=== PATIENT | female | born 1975 | race Caucasian/White ===

== ENCOUNTER → 2021-12-02 12:24 | Outpatient (CLI) | payer OTHER, SELFPAY ==
[2021-12-02 13:18] LABS: Hematocrit 44.7 % (37.0-47.0); Hemoglobin 14.7 g/dL (12.2-16.2); Mean Corpuscular HGB Conc 32.8 g/dL (31.8-35.4); Mean Corpuscular Hemoglobin 31.9 pg (27.0-31.2); Mean Corpuscular Volume 97.3 fl (81-99); Platelet Count 340 K/mm3 (142-424); Red Cell Distribution Width 12.8 % (11.5-17.5); White Blood Count 6.1 K/mm3 (4.8-10.8)
[2021-12-02 14:17] LABS: Alanine Aminotransferase 14 U/L (12-78); Albumin Level 4.2 g/dl (3.5-5.0); Albumin/Globulin Ratio 1.8 (1.1-1.8); Alkaline Phosphatase 54 U/L (38-126); Anion Gap 10.4 mEq/L (5-15); Aspartate Amino Transferase 19 U/L (14-36); Bilirubin,Total 0.6 mg/dl (0.2-1.3); Blood Urea Nitrogen 12 mg/dl (7-17); Calcium 8.8 mg/dl (8.4-10.2); Carbon Dioxide 27 mmol/L (22.0-30.0); Chloride 102 mmol/L (98-107); Chol/HDL Ratio 4.2 (1-3.5); Cholesterol 219 mg/dl (140-200); Estimated Glomerular Filt Rate 89 ml/min (>60); GFR (African American) 108 ML/MIN (>60); Globulin 2.4 g/dL (1.3-3.2); Glucose 78 mg/dl (74-100); HDL Cholesterol 52 mg/dl (40-60); Potassium 4.4 mmoL/L (3.5-5.1); Sodium 135 mmol/L (136-145); Total Protein,Serum 6.6 g/dl (6.3-8.2); Triglycerides 102 mg/dl (30-150); VLDL Cholesterol 20 mg/dL (0-40)
[2021-12-02 14:28] LABS: Direct LDL Cholesterol 128.16 mg/dL (100-129)
[2021-12-02 14:34] LABS: 25-OH Vitamin D, Total 37.9 ng/mL (30-100); T4 (Thyroxine) 6.1 ug/dl (5.53-11.0)
[2021-12-02 14:35] LABS: Free T4 (Free Thyroxine) 0.77 ng/dl (0.78-2.19)
[2021-12-02 14:48] LABS: Thyroid Stimulating Hormone 0.59 uIU/mL (0.465-4.68)
[2021-12-04 09:23] LABS: Triiodothyronine (T3) Free 4.5 pg/mL (2.0-4.4)
[2021-12-04 22:26] LABS: Thyroglobulin Level <1.0 IU/mL (0.0-0.9)
[2021-12-09 08:47] LABS: Thyroid Peroxidase Antibodies 49 IU/mL (0-34)
== END ==
PROVIDERS: Visit Provider Family Medicine
DX: Z00.00 Encounter for general adult medical examination without abnormal findings (principal); E03.9 Hypothyroidism, unspecified; E06.3 Autoimmune thyroiditis; E55.9 Vitamin D deficiency, unspecified
CPT/HCPCS: 36415; 80053; 80061; 82306; 84436; 84439; 84443; 84481; 85014; 85018; 85048; 85049; 86376; 86800

== ENCOUNTER → 2022-04-30 12:54 | Outpatient (CLI) | payer OTHER, SELFPAY ==
[2022-04-30 14:34] LABS: Free T4 (Free Thyroxine) 1.43 ng/dl (0.78-2.19)
[2022-04-30 14:35] LABS: 25-OH Vitamin D, Total 79.3 ng/mL (30-100)
[2022-04-30 14:37] LABS: T4 (Thyroxine) 11.8 ug/dl (5.53-11.0)
[2022-04-30 14:51] LABS: Thyroid Stimulating Hormone < 0.02 uIU/mL (0.465-4.68)
[2022-05-02 10:08] LABS: Thyroid Peroxidase Antibodies 31 IU/mL (0-34); Triiodothyronine (T3) Free 4.1 pg/mL (2.0-4.4)
== END ==
PROVIDERS: PCP Family Medicine; Visit Provider Family Medicine
DX: E03.9 Hypothyroidism, unspecified (principal); E06.3 Autoimmune thyroiditis; E55.9 Vitamin D deficiency, unspecified
CPT/HCPCS: 36415; 82306; 84436; 84439; 84443; 84481; 86376

== ENCOUNTER → 2023-09-22 09:05 | Outpatient (CLI) | payer BC, OTHER, SELFPAY ==
[2023-09-22 10:33] LABS: Free T4 (Free Thyroxine) 1.39 ng/dl (0.78-2.19)
[2023-09-22 10:46] LABS: Thyroid Stimulating Hormone < 0.02 uIU/mL (0.465-4.68)
[2023-09-23 09:48] LABS: FSH 4.9 mIU/mL (.); LH 13.4 mIU/mL (.); Progesterone 12.1 ng/mL (.); Triiodothyronine (T3) Free 3.2 pg/mL (2.0-4.4)
[2023-09-30 06:09] LABS: Pregnenolone, MS 80 ng/dL (.)
[2023-10-01 20:18] LABS: Free Testosterone (Direct) 1.7 pg/mL (0.0-4.2); Testosterone, Total, LC/MS 51.7 ng/dL (.)
== END ==
PROVIDERS: PCP Family Medicine; Visit Provider Family Medicine
DX: E03.9 Hypothyroidism, unspecified (principal); E89.40 Asymptomatic postprocedural ovarian failure
CPT/HCPCS: 36415; 82626; 82670; 83001; 83002; 84140; 84144; 84439; 84443; 84481

== ENCOUNTER 2023-09-23 09:02 | Emergency (ER) | payer BC, OTHER, SELFPAY ==
[2023-09-23 09:15] VITALS: BP 129/78; PULSE 78; RESP 20; TEMP 36.6; O2SAT 95; BMI 25.0
--- NOTE | 2023-09-23 09:20 | ED_ITS ---
Discharge Plan Disposition Patient Disposition: Home, Self-Care Condition: Good Prescriptions Prescriptions: New benzonatate [benzonatate] 100 mg capsule 100 mg PO TIDP PRN (Reason: Cough) Qty: 30 0RF oseltamivir [Tamiflu] 75 mg capsule 75 mg PO BID Qty: 10 0RF ibuprofen [ibuprofen] 600 mg tablet 600 mg PO Q6HP PRN (Reason: Mild Pain) Qty: 30 0RF No Action liothyronine 5 mcg tablet 5 mcg PO DAILY levothyroxine [Synthroid] 112 mcg tablet 112 mcg PO DAILY escitalopram oxalate 10 mg tablet 10 mg PO DAILY Referrals Follow up/Referrals: Adamaris Glass [Primary Care Provider] - See instructions Activity Restrictions/Add. Instructions Additional Instructions/Restrictions: Drink plenty of fluids. Take tylenol or ibuprofen for pain or fever. Take the medications as directed. Follow up with your regular doctor. GO TO THE ER FOR ANY WORSENING SYMPTOMS Clinical Impressions Clinical Impression: Acute viral syndrome Instructions Patient Instructions: DI for Influenza -- Adult, Oseltamivir Discharge ED Provider: Shaun Sanchez [facility] General Stated complaint: fever,body aches, runny nose Time Seen by Provider: 09/23/23 09:20 History of Present Illness Provider Complaint: She states that for the past 2 days she has had fever, chills, body aches, dry cough, malaise, and scratchy throat. She has been exposed to influenza. She denies any shortness of breath. Related Data Home Medications Medication Instructions Recorded Confirmed escitalopram oxalate 10 mg tablet 10 mg PO DAILY 09/23/23 09/23/23 levothyroxine 112 mcg tablet 112 mcg PO DAILY 09/23/23 09/23/23 (Synthroid) liothyronine 5 mcg tablet 5 mcg PO DAILY 09/23/23 09/23/23 Previous Rx's Medication Instructions Recorded benzonatate 100 mg capsule 100 mg PO TIDP PRN Cough #30 caps 09/23/23 ibuprofen 600 mg tablet 600 mg PO Q6HP PRN Mild Pain #30 09/23/23 tabs oseltamivir 75 mg capsule (Tamiflu) 75 mg PO BID #10 caps 09/23/23 Allergies Allergy/AdvReac Type Severity Reaction Status Date / Time No Known Allergies Allergy Verified 09/23/23 09:27 [facility] Disclaimer: The information contained in this section may have been updated after the patient was seen, as this information can be updated by other users. Medical History (Updated 09/23/23 @ 09:45 by Shaun Sanchez APRN) Anxiety Depression Thyroid disease Urinary tract infection Surgical History (Updated 09/23/23 @ 09:27 by Rafaela Rodríguez RN) History of hernia repair History of hysterectomy History of tonsillectomy Social History Smoking Status: Never smoker alcohol intake: never current occupational status: employed Travel in the last 8 weeks: None ROS Obtained: Yes All systems reviewed & no additional complaints except as documented Constitutional Constitutional: Reports as per HPI, Reports body ache, Reports chills and Report s fever(s) Eyes Eyes: Denies eye discharge ENT Ears, Nose, Mouth, and Throat: Reports as per HPI Cardiovascular Cardiovascular: Denies chest pain Respiratory Respiratory: Denies chest congestion and Reports cough Gastrointestinal Gastrointestingal: Reports nausea; Denies abdominal pain, constipation, cramping, diarrhea or vomiting Musculoskeletal Musculoskeletal: Denies arthralgias Integumentary/Breasts Skin/Breast: Denies rash Neurologic Neurologic: Denies paresthesias Physical Exam General General appearance: alert and in no apparent distress Head Head exam: atraumatic, normocephalic and normal inspection Eye Eye exam: Present normal appearance, PERRL and EOMI ENT ENT exam: Present normal exam, normal oropharynx, mucous membranes moist, TM's normal bilaterally and normal external ear exam Neck Neck exam: Present normal inspection, full ROM and trachea midline; Absent meningismus or lymphadenopathy Chest Chest inspection: Present normal inspection and symmetric chest wall rise; Absent tenderness Respiratory Respiratory exam: Present normal lung sounds bilaterally; Absent respiratory distress Cardiovascular Cardiovascular exam: Present regular rate and normal rhythm; Absent JVD Abdominal Exam Abdominal exam: Present soft and normal bowel sounds; Absent distention, tenderness or guarding Extremities Exam Extremities exam: Present normal inspection, full ROM and normal capillary refill; Absent calf tenderness Back Exam Back exam: Present normal inspection; Absent tenderness Neurological Exam Neurological exam: Present alert and oriented X3 Psychiatric Psychiatric exam: Present normal affect and normal mood Skin Skin exam: Present warm, dry, intact and normal color Lymphatic Lymphatic Findings: no adenopathy Medical Decision Making Medical Records Medical records reviewed: No I reviewed the patient's medical records. Hussein Inquiry Pt receiving controlled substance: No Lab Data Lab results reviewed: Yes I reviewed the patient's lab results.
[2023-09-23 09:25] LABS: UTC Influenza A Antigen Negative (Negative); UTC Influenza B Antigen Negative (Negative)
[2023-09-23 09:30] VITALS: BP 129/78; PULSE 78; RESP 20; TEMP 36.6; O2SAT 95
== END 2023-09-23 09:50 | disposition home or self-care (01) ==
PROVIDERS: Emergency Provider Nurse Practitioner Family; PCP Family Medicine
DX: U07.1 COVID-19 (principal); R50.9 Fever, unspecified; R05.9 Cough, unspecified; R09.81 Nasal congestion; R53.81 Other malaise; M79.18 Myalgia, other site; E03.9 Hypothyroidism, unspecified; Z20.828 Contact with and (suspected) exposure to other viral communicable diseases
CPT/HCPCS: 87635; 87804; 99204; 99212; G0463

== ENCOUNTER 2024-02-10 11:58 | Outpatient (CLI) | payer BC, OTHER, SELFPAY ==
[2024-02-10 12:44] LABS: Basophils # 0.1 K/mm3 (0-0.2); Basophils % 0.6 % (0.1-2.0); Eosinophils # 0.2 K/mm3 (0.0-0.4); Eosinophils % 2.1 % (0.1-12.0); Hematocrit 45.8 % (37.0-47.0); Hemoglobin 15.4 g/dL (12.2-16.2); Lymphocytes # 2.1 K/mm3 (0.7-4.5); Lymphocytes % 28.7 % (10-50); Mean Corpuscular HGB Conc 33.6 g/dL (31.8-35.4); Mean Corpuscular Hemoglobin 32.6 pg (27.0-31.2); Mean Corpuscular Volume 96.9 fl (81-99); Mean Platelet Volume 6.8 fl (7.4-10.4); Monocytes # 0.2 K/mm3 (0.1-1.0); Monocytes % 3.3 % (1.7-9.3); Neutrophils # 4.8 K/mm3 (1.8-7.8); Neutrophils % 65.2 % (37.0-80.0); Platelet Count 303 K/mm3 (142-424); Red Blood Count 4.72 M/mm3 (4.20-5.40); Red Cell Distribution Width 13.1 % (11.5-17.5); White Blood Count 7.3 K/mm3 (4.8-10.8)
[2024-02-10 13:57] LABS: Free T4 (Free Thyroxine) 1.15 ng/dl (0.78-2.19)
[2024-02-10 14:25] LABS: Vitamin B12 370 pg/mL (239-931)
[2024-02-10 14:48] LABS: Thyroid Stimulating Hormone 0.03 uIU/mL (0.465-4.68)
[2024-02-10 14:52] LABS: Ferritin 86.2 ng/ml (11.1-264)
[2024-02-11 14:19] LABS: FSH 10.5 mIU/mL (.); Insulin Level Total 4.9 uIU/mL (2.6-24.9); LH 17.8 mIU/mL (.); Progesterone 6.8 ng/mL (.); Triiodothyronine (T3) Free 3.5 pg/mL (2.0-4.4)
[2024-02-14 00:08] LABS: Zinc 85 ug/dL (44-115)
[2024-02-16 14:24] LABS: % Free Testosterone 1.67 % (0.50-2.80); Testosterone 47 ng/dL (4-50); Testosterone, Free 0.78 ng/dL (0.10-0.85)
[2024-02-18 07:32] LABS: Free Testosterone (Direct) 2.2 pg/mL (0.0-4.2); Testosterone, Total, LC/MS 60.9 ng/dL (.)
[2024-02-19 19:31] LABS: Testosterone, Total, LC/MS 46 ng/dL (.)
[2024-02-20 12:16] LABS: Testosterone,Total 60.9
[2024-02-20 12:17] LABS: Miscellaneous Test SCANNED IMAGE
[2024-02-26 02:44] LABS: Pregnenolone, MS 34 ng/dL (.)
== END 2024-02-10 23:59 | disposition home or self-care (01) ==
LOC: LAB 11:59
PROVIDERS: PCP Family Medicine; Visit Provider Family Medicine
DX: M75.82 Other shoulder lesions, left shoulder (principal); E03.9 Hypothyroidism, unspecified; N95.1 Menopausal and female climacteric states; R53.83 Other fatigue; E55.9 Vitamin D deficiency, unspecified; E60 Dietary zinc deficiency
CPT/HCPCS: 36415; 82306; 82607; 82626; 82728; 83001; 83002; 83525; 84140; 84144; 84402; 84403; 84439; 84443; 84481; 84630; 85025

== ENCOUNTER 2025-07-24 16:17 | Outpatient (CLI) | payer BC, OTHER, SELFPAY ==
--- OUTSIDE RECORDS SUMMARY | 2025-06-24 13:27 | XMS_ITS | Encounter Summary ---
Author Organization [facility] ([place], [place], [place], [place]) Address [address] [place] [address] Care Team Providers Care Fur Stretcher Name Role Phone Adamaris Glass DO Primary Care Provider [phone] Reason for Visit * Mammography (Routine) - Closed Specialty Diagnoses / Procedures Referred By Contac t Referred To Contact Radiology Diagnoses Visit for screening mammogram Procedures MM digital mammo screen with taqueria bilateral Adamaris Glass DO [address] [place] [address] Phone: tel: fax: [facility] [address] [place] [address] Phone: tel: fax: Referral ID Status Reason Start Date Expiration Date Visits Re quested Visits Authorized [id number] Closed 06/24/2025 06/24/2026 1 1 Encounter Details Date Type Department Care Team (Latest Contact Info) Description 06/24/2025 1:27 PM EDT - 06/24/2025 11:59 PM EDT Hospital Encounter [facility] [address] [place] [phone] Adamaris Glass DO [address] [place] [address] Discharge Disposition: Home or Self [...] Date Larry rded Speak language other than Georgian at home Not on file 10/05/2023 Want [...] Description 10/16/2025 1:00 PM EST Office Visit [facility] Primary Care [address] [place] [address] Adamaris Glass DO [address] [place] [address] 06/26/2026 2:45 PM EDT Appointment [facility] [address] [place] [address] documented as of this encounter [...] the next mammogram. At our facility, a [place] marker is positioned over a visible skin [...] No suspicious change identified. Adamaris Glass DO [facility] [place] MAMMOGRAPHY ORDERABLES Fin al Result documented in this encounter Visit Diagnoses Not on filedocumented in this encounter Care Teams Fur Stretcher Relationship Specialty Start Date End Date Adamaris Glass DO PCP - General Family Medicine 11/18/22 documented as of this encounter
--- OUTSIDE RECORDS SUMMARY | 2025-07-18 14:15 | XMS_ITS | Encounter Summary ---
Author Organization [employer] ([place], [place], [place], [place]) Address [address] [place] [address] Care Team Providers Care Store Stock Help Name Role Phone Adamaris Glass DO Primary Care Provider [phone] Reason for Visit * Reason Comments Infection Signs dx'd with co ntagious oral bacteria from an abscess Encounter Details Date Type Department Care Team (Latest Contact Info) Description 07/18/2025 2:15 PM EDT Video - Telemedicine [facility] Primary Care [address] [place] [address] Adamaris Glass DO [address] [place] [address] Tick bite, unspecified site, initial [...] Date Larry rded Speak language other than Uzbek at home Not on file 10/05/2023 Want [...] 4:22 This note was partially generated using [employer] Dictation System, and there may be some [...] Description 10/16/2025 1:00 PM EST Office Visit [facility] Primary Care [address] [place] [address] Adamaris Glass DO [address] [place] [address] 06/26/2026 2:45 PM EDT Appointment [facility] [address] [place] [address] Scheduled Orders Name Type Priority [...] deficiency documented in this encounter Care Teams Store Stock Help Relationship Specialty Start Date End Date Adamaris Glass DO PCP - General Family Medicine 11/18/22 documented as of this encounter
--- OUTSIDE RECORDS SUMMARY | 2025-07-24 16:20 | XMS_ITS | Encounter Summary ---
Author Organization [employer] ([place], [place], [place], [place]) Address [address] [place] [address] Care Team Providers Care Truck Dispatcher Name Role Phone Adamaris Glass DO Primary Care Provider [phone] Reason for Referral * Mammography (Routine) - Authorized Specialty Diagnoses / Procedures Referred By Contac t Referred To Contact Radiology Diagnoses Visit for screening mammogram Procedures MM digital mammo screen with sury bilateral Adamaris Glass DO [address] [place] [address] Phone: tel: fax: [facility] [address] [facility] [address] [place] [address] Phone: tel: fax: Referral ID Status Reason Start Date Expiration Date V isits Requested Visits Authorized [id number] Authorized 06/26/2026 06/26/2027 1 1 Encounter Details Date Type Department Care Team (Late st Contact Info) Description 06/24/2025 Outside Orders [facility] [address] [place] [address] Adamaris Glass DO [address] [place] [address] Visit for screening mammogram (Primary Dx) Social History Tobacco Use Types Packs/Day Years [...] Date Larry rded Speak language other than Zimbabwean at home Not on file 10/05/2023 Want [...] on file documented as of this encounter Plan of Treatment Upcoming Encounters Date Type Department Care Team (Late st Contact Info) Description 10/16/2025 1:00 PM EST Office Visit [facility] Primary Care [address] [place] [id number] Adamaris Glass, [address] [place] [address] 06/26/2026 2:45 PM EDT Appointment [address] [place] [address] Scheduled Orders Name Type Priority Associated Diagnoses Orde r Schedule MM digital mammo screen with sury bilateral Imaging Routine Visit for screening mammogram Expected: 06/26/2026, Expires: 06/26/2027 documented as of this encounter Visit Diagnoses Diagnosis Visit for screening mammogram- Primary documented in this encounter Care Teams Truck Dispatcher Relationship Specialty Start Date End Date Adamaris Glass DO PCP - General Family Medicine 11/18/22 documented as of this encounter
--- OUTSIDE RECORDS SUMMARY | 2025-07-24 16:20 | XMS_ITS | Encounter Summary ---
Author Organization [employer] ([place], [place], [place], [place]) Address [address] [place] [address] Care Team Providers Care Clothing Designer Name Role Phone Adamaris Glass DO Primary Care Provider [phone] Reason for Visit * Reason Comments Medication Refill Encounter Details Date Type Department Care Team (Late st Contact Info) Description 01/17/2024 Refill [facility] Primary Care [address] [place] [address] Adamaris Glass DO [address] [facility] [address] [place] [address] Depressive disorder Social History Tobacco Use Types Packs/Day Years [...] Date Larry rded Speak language other than Sri Lankan at home Not on file 10/05/2023 Want [...] Description 10/16/2025 1:00 PM EST Office Visit [facility] Primary Care [address] [place] [address] Adamaris Glass DO [address] [place], [place] [id number] 06/26/2026 2:45 PM EDT Appointment [facility] [address] [place] [address] documented as of this encounter Visit Diagnoses Diagnosis Depressive disorder Depressive disorder, not elsewhere classified documented in this encounter Care Teams Clothing Designer Relationship Specialty Start Date End Date Adamaris Glass DO PCP - General Family Medicine 11/18/22 documented as of this encounter
--- OUTSIDE RECORDS SUMMARY | 2025-07-24 16:20 | XMS_ITS | Clinical Summary ---
Author Organization [facility] Address [address] [place] [id number] Care Team Providers Care Car Audio Installer Name Role Phone Unavailable Primary Care Provider Unavailabl e Social History Tobacco Use Types Packs/Day Years Used Date Smoking Tobacco: Never Assessed Abuse Screen Answer Date Recorded Unsafe at Home or Work/School Not on file Feels Threatened by Someone? Not on file 05/2023 Does Anyone Keep You from Co ntacting Others or Doint Things Outside the Home? Not on file 07/04/2023 Physical Sign of Abuse Present Not on file 1 Housing Stability Answer Date Recorded Current Living Arrangements Not on file 05/2023 Potentially Unsafe Housing Conditions Not on sarahi e 07/04/2023 Family and Community Support Answer Xu e Recorded Help with Day-to-Day Activities Not on file 07/04/2023 Lonely or Isolated Not on file 07/04/2023 Employment Answer Date Recorded Do you want help finding or keeping work or a immanuel b? Not on file 07/04/2023 Disabilities Answer Date Recorded Concentrating, Remembering, or Making Decisions Difficulty Not on file 07/04/2023 Doing Errands Independently Difficulty Not on fi le 07/04/2023 Education Answer Date Recorded Help with school or training? Not on file Preferred Language Not on file 07/04/2023 Comments Unknown Sex and Gender Information Value Date Recorded Sex Assigned at Not on file Legal Sex Female 11:22 AM EDT Gender Identity Not on file Sexual Orientation Not on file Plan of Treatment Health Maintenance Due Date Last Done Comments ANNUAL PHYSICAL 1973 Annual Gynecologic Pelvic and Breast Exam 1973 HEPATITIS C SCREENING 1973 TDAP/TD VACCINES (1 - Tdap) 01/19/1992 MAMMOGRAM 2013 COLOGUARD 2018 COLON CANCER SCREENING 5 YEAR SIGMOIDOSCOPY 2018 COLONOSCOPY 2018 [address]AL CANCER SCREENING 2018 CT COLONOGRAPHY 2018 FECAL OCCULT BLOOD TEST 2018 FIT Testing (1 year) 2018 Pneumococcal Vaccine 50+ (1 of 1 - PCV) 2023 ZOSTER VACCINE (1 of 2) 2023 INFLUENZA VACCINE 04/26/2025
--- OUTSIDE RECORDS SUMMARY | 2025-07-24 16:20 | XMS_ITS | Encounter Summary ---
Author Organization [employer] ([place], [place], [place], [place]) Address [address] [place] [address] Care Team Providers Care Glass Bulb Machine Adjuster Name Role Phone Adamaris Glass DO Primary Care Provider [phone] Reason for Visit * Reason Comments Medication Refill Encounter Details Date Type Department Care Team (Late st Contact Info) Description 10/29/2022 Refill [facility] Primary Care [address] [place] [address] Adamaris Glass DO [address] [place] [address] Hypothyroidism, unspecified type (Primary Dx) Social History Tobacco Use Types Packs/Day Years Used Date Smoking Tobacco: Never Assessed Comments Unknown Sex and Gender Information Value Date Recorded Sex Assigned at Not on file Legal Sex Female 3:57 PM CDT Gender Identity Not on file Sexual Orientation Not on file documented as of this encounter Plan of Treatment Upcoming Encounters Date Type Department Care Team (Late st Contact Info) Description 10/16/2025 1:00 PM EST Office Visit [facility] Primary Care [address] [place] [address] Adamaris Glass DO [address] [place] [address] 06/26/2026 2:45 PM EDT Appointment [address] [place] [address] documented as of this encounter Visit Diagnoses Diagnosis Hypothyroidism, unspecified type- Primary documented in this encounter Care Teams Glass Bulb Machine Adjuster Relationship Specialty Start Date End Date Adamaris Glass DO PCP - General Family Medicine 11/18/22 documented as of this encounter
--- OUTSIDE RECORDS SUMMARY | 2025-07-24 16:20 | XMS_ITS | Encounter Summary ---
Author Organization [employer] ([place], [place], [place], [place]) Address [address] [place] [address] Care Team Providers Care Vocational Instructor Name Role Phone Adamaris Glass DO Primary Care Provider [phone] Reason for Visit * Reason Comments Medication Refill Encounter Details Date Type Department Care Team (Late st Contact Info) Description 07/16/2023 Refill [facility] Primary Care [address] [facility] [address] [place] [address] Adamaris Glass DO [address] [place] [address] Social History Tobacco Use Types Packs/Day Years Used Date Smoking Tobacco: Some Days Cigarettes 0.3 15 Smokeless Tobacco: Never Alcohol Use Standard Drinks/Week Comments Yes 0 (1 standard drink = 0.6 oz pur e alcohol) occasional Comments No Sex and Gender Information Value Date Recorded Sex Assigned at Not on file Legal Sex Female 3:57 PM CDT Gender Identity Not on file Sexual Orientation Not on file documented as of this encounter Plan of Treatment Upcoming Encounters Date Type Department Care Team (Late st Contact Info) Description 10/16/2025 1:00 PM EST Office Visit [facility] Primary Care [address] [place] [address] Adamaris Glass DO [address] [place] [address] 06/26/2026 2:45 PM EDT Appointment [address] [place] [address] documented as of this encounter Visit Diagnoses Not on filedocumented in this encounter Care Teams Vocational Instructor Relationship Specialty Start Date End Date Adamaris Glass DO PCP - General Family Medicine 11/18/22 documented as of this encounter
--- OUTSIDE RECORDS SUMMARY | 2025-07-24 16:20 | XMS_ITS | Referral Summary ---
Author Organization [employer] ([place], [place], [place], [place]) Address [address] [place] [address] Care Team Providers Care Search Analyst Name Role Phone Adamaris Glass DO Primary Care Provider [phone] Encounters Date Type Department Care Team Description 07/18/2025 2:15 PM EDT Video - Telemedicine [facility] Primary Care [address] [place] [address] Adamaris Glass DO Tick bite, unspecified site, initial encounter (Primary Dx); Medium-risk exposure to infectious patient; Pain in other joint; Screening for cardiovascular condition; Vitamin D deficiency 07/18/2025 Telephone [facility] Primary Care [address] [place] [address] Adamaris Glass DO Appointment 06/24/2025 Outside Orders [facility] [address] [facility] [address] [place] [address] Adamaris Glass DO Visit for screening mammogram (Primary Dx) 06/24/2025 Travel 06/24/2025 1:27 PM EDT - 06/24/2025 11:59 PM EDT Hospital Encounter [facility] [address] [facility] [address] [place] [address] Adamaris Glass DO Discharge Disposition: Home or Self Care 05/21/2025 Refill [facility] Primary Care [address] [facility] [address] [place] [address] Adamaris Glass DO Hypothyroidism, unspecified type from Last 3 Months Allergies Active Allergy Reactions Criticality Noted Date Comments Penicillin 11/18/2022 Medications cholecalciferol , vitamin D3, (VITAMIN D3 ORAL) Take by mouth. Activ e loratadine (CLARITIN) 10 mg tablet Take 1 tablet (10 mg total) by mouth daily. Active Lactobac no.41/Bifidobac t no.7 (PROBIOTIC-10 ORAL) Take by mouth. Activ e docosahexaenoic acid/epa (FISH OIL ORAL) Take by mouth. Activ e ibuprofen (ADVIL,MOTRIN) 600 MG tablet Take 1 tablet (600 mg total) by mouth every 6 (six) hours as needed. 3 Active cream base no.101, bulk, CreaIndications :Perimenopause Progesterone 20mg/0.5ml TD cream apply 0.5ml TD qhs. 2 4 Active fluconazole (DIFLUCAN) 150 MG tablet Take one tablet now and repeat in 3 days. 2 tablet 4 Active Synthroid 100 mcg tabletIndicatio ns:Hypothyroidi sm, unspecified type Take 1 tablet (100 mcg total) by mouth Daily (0600). 90 tablet 1 4 Active Missing or Non-Formulary Medication 5-HTP. 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 Hypothyroidism 09/08/2021 Vitamin D deficiency 09/08/2021 Depressive disorder 01/05/2021 Perimenopause 01/05/2021 Zinc deficiency 01/05/2021 Social History Tobacco Use Types Packs/Day Years Used Date Smoking Tobacco: Some Days Cigarettes 0.3 15 Smokeless Tobacco: Never Tobacco Cessation:Ready to Q uit: Not Asked; Counseling Given: Not Answered Alcohol Use Standard Drinks/Week Comments Yes 0 [...] Date Larry rded Speak language other than Malaysian at home Not on file 10/05/2023 Want [...] on file Sexual Orientation Not on file Last Filed Vital Signs Vital Sign Reading Time Taken Comments Blood Pressure 124/72 07/18/2025 11:06 AM EDT Pulse 66 11/09/2023 10:18 AM EST Temperature 36.3 C (97.3 F) 06/16/2023 9:02 AM EDT Respiratory Rate 16 02/25/2023 11:20 AM EDT Oxygen Saturation 97% 11/09/2023 10:18 AM EST Inhaled Oxygen Concentration - - Weight 71.7 kg (158 lb) 07/18/2025 11:06 AM EDT Height 167.6 cm (5' 6 ) 07/18/2025 11:06 AM EDT Body Mass Index 25.5 07/18/2025 11:06 AM EDT Plan of Treatment Upcoming Encounters Date Type Department Care Team (Late st Contact Info) Description 10/16/2025 1:00 PM EST Office Visit [facility] Primary Care [address] [place] [address] Nithya GlassjoseDO [address] [place] [address] 06/26/2026 2:45 PM EDT Appointment [facility] Breast Care [address] [place] [address] Procedures Procedure Name Priority Date/Time Associated Diagnosis Comments MM DIGITAL MAMMO SCREEN WITH TAQUERIA BILATERAL Routine 06/24/2025 1:49 PM EDT Visit for screening mammogram LIPID PANEL WITH LDL/HDL RATIO ([facility]) Routine 12/23/2022 11:13 AM EDT Encounter for general adult medical examination without abnormal findings LIQUID-BASED PAP SMEAR, SCREENING Routine 12/23/2022 12:00 AM EDT from Last 3 Months or Most Recently Relevant to Health Maintenance Results * MM digital mammo screen with [...] the next mammogram. At our facility, a [place] marker is positioned over a visible skin [...] DO IMG MAMMOGRAPHY ORDERABLES Fin al Result * (ABNORMAL) Lipid Panel With LDL/HDL Ratio (12/23/2022 11:13 AM EDT) Pathologist [facility] Cholesterol, Total 222(H) 100 - 199 mg/dL [facility] Triglycerides 81 0 - 149 mg/dL [facility] HDL Cholesterol 63 >39 mg/dL [facility] VLDL Cholesterol Juan C 14 5 - 40 mg/dL [facility] LDL Calculated 145(H) 0 - 99 mg/dL [facility] LDl/HDL Ratio 2.3 0.0 - 3.2 ratio [facility] Comment: LDL/HDL Ratio Men Women 1/2 Avg.Risk 1.0 1.5 Avg.Risk 3.6 3.2 2X Avg.Risk 6.2 5.0 3X Avg.Risk 8.0 6.1 Blood 12/23/2022 11:1 3 AM EDT 12/23/2022 Narrative [facility] - 12/24/2022 4:06 AM EDT Performed at: [address] [place] [id number] Shellfish Processing Laborer: Maik Davila PhD, Phone: [phone] Caresse Quan DO LAB BLOOD ORDERABLES Final Res ult Performing Organization Address [facility] Co de Phone Number [facility] * Liquid-based pap smear, screening (12/23/2022 12:00 AM EDT) DIAGNOSIS: Comment [facility] Comment: NEGATIVE FOR INTRAEPITHELIAL LESION OR MALIGNANCY. FUNGAL ORGANISMS MORPHOLOGICALLY CONSISTENT WITH VINCENT SPECIES ARE PRESENT. CELLULAR CHANGES ASSOCIATED WITH INFLAMMATION ARE PRESENT. Specimen adequacy: Comment [facility] Comment:Satisfactory for aminata luation. No endocervical component is identified. Diagnosis provided by: Comment [facility] Comment:[id number] Performed by: Comment [facility] Comment:Rico De Santiago totechnologist (ASCP) . . [facility] Note: Comment [facility] Comment: The Pap smear is a screening test designed to aid in the detection of premalignant and malignant conditions of the uterine cervix. It is not a diagnostic procedure and should not be used as the sole means of detecting cervical cancer. Both false-positive and false-negative reports do occur. 12/23/2022 12/24/2022 Narrative [facility] - 12/29/2022 5:06 PM EDT Performed at: - [address] [id number] Shellfish Processing Laborer: Ana Alarcon MD, Phone: [phone] Specimen Comment: No. of containers..01 ThinPrep Vial Resulting Agency Comment [id number] Adamaris Glass DO PATHOLOGY/CYTOLOGY ORDERABLES Final Result Performing Organization Address [facility] Co de Phone Number [facility] from Last 3 Months or Most Recently Relevant to Health Maintenance Insurance BLUE CROSS/BLUE SHIELD Care Teams Search Analyst Relationship Specialty Start Date End Date Adamaris Glass DO PCP - General Family Medicine 11/18/22
--- OUTSIDE RECORDS SUMMARY | 2025-07-24 16:20 | XMS_ITS | Encounter Summary ---
Author Organization [employer] ([place], [place], [place], [place]) Address [address] [place] [address] Care Team Providers Care Sterilization Specialist Name Role Phone Nithya Glassjose Primary Care Provider [phone] Encounter Details Date Type Department Care Team (Latest Contact Info) Description 06/24/2025 Travel Social History Tobacco Use Types Packs/Day Years [...] Date Larry rded Speak language other than Mohawk at home Not on file 10/05/2023 Want [...] Description 10/16/2025 1:00 PM EST Office Visit [facility] Primary Care [address] [place] [place] [address] Adamaris Glass DO [address] [place] [address] 06/26/2026 2:45 PM EDT Appointment [facility] [address] [facility] [address] [place] [address] documented as of this encounter Visit Diagnoses Not on filedocumented in this encounter Care Teams Sterilization Specialist Relationship Specialty Start Date End Date Adamaris Glass DO PCP - General Family Medicine 11/18/22 documented as of this encounter
--- OUTSIDE RECORDS SUMMARY | 2025-07-24 16:20 | XMS_ITS | Encounter Summary ---
Author Organization [employer] ([place], [place], [place], [place]) Address [address] [place] [address] Care Team Providers Care Veneer Matcher Name Role Phone Adamaris Glass DO Primary Care Provider [phone] Reason for Referral * Mammography (Routine) - Closed Specialty Diagnoses / Procedures Referred By Contac t Referred To Contact Diagnoses Visit for screening mammogram Procedures MM digital mammo screen with sury bilateral Adamaris Glass DO [address] [place] [address] Phone: tel: fax: Referral ID Status Reason Start Date Expiration Date Visits Re quested Visits Authorized [id number] Closed 06/20/2023 12/17/2023 1 1 Encounter Details Date Type Department Care Team (Late st Contact Info) Description 06/18/2022 Outside Orders [facility] Breast [address] [place] [address] Adamaris Glass DO [address] [place] [address] Visit for screening mammogram (Primary [...] Description 10/16/2025 1:00 PM EST Office Visit [facility] Primary Care [address] [place] [address] QuanNithyajose [address] [place], [place] [address] 06/26/2026 2:45 PM EDT Appointment [facility] Breast [facility] [address] [facility] [address] [place] [address] documented as of this encounter Results * MM digital mammo screen with sury bilateral (06/20/2023 1:25 PM EDT) Anatomical Region Laterality Modality Breast Bilateral Mammography 06/20/2023 2:11 PM EDT Impressions 06/20/2023 2:19 PM EDT FINAL IMPRESSION: ACR BI-RADS 2: Benign finding. RECOMMENDATIONS: Routine annual screening mammography. A letter including results and recommendations was sent to the patient. Density notification was provided to patients with type 3 or 4 breast tissue pattern. Patient information entered into a reminder system with a target due date for the next mammogram. At our facility, a catawba marker is positioned over a visible skin lesion and a linear marker is used to indicate a scar. A triangular marker is placed on a self reported palpable finding. Note: Mammography does not detect approximately 10-15% of breast cancers. An annual clinical breast exam by the patient's breast care physician and regular monthly self breast exams by the patient are integral parts of breast cancer screening, in addition to annual mammography. A normal mammogram does not completely exclude the presence of breast cancer, especially if there is an abnormal finding on physical exam. When clinically indicated, a biopsy should not be deferred because of a normal mammogram report. cc: D Narrative 06/20/2023 2:19 PM EDT PROCEDURE: Bilateral digital screening mammogram with tomosynthesis. REASON FOR EXAM: Routine screening. FAMILY HISTORY: No family history of breast cancer. COMPARISON STUDY: [facility] FINDINGS: Craniocaudal and mediolateral oblique images of both breasts were obtained in 2D, C-view, and 3D modes. 2-D left XCCL view also performed. The breast tissue is heterogeneously dense, which may obscure small masses. Known 15 mm circumscribed ovoid benign cyst at the 10-11:00 position of the right breast is unchanged. There is no evidence of a spiculated mass, architectural distortion, or suspicious calcifications. No significant interval change. This examination was reviewed with the benefit of computer-aided detection (CAD). Adamaris Glass DO [facility] MAMMOGRAPHY ORDERABLES Fin al Result documented in this encounter Visit Diagnoses Diagnosis Visit for screening mammogram- Primary Visit for screening mammogram documented in this encounter Care Teams Veneer Matcher Relationship Specialty Start Date End Date Adamaris Glass DO PCP - General Family Medicine 11/18/22 documented as of this encounter
--- OUTSIDE RECORDS SUMMARY | 2025-07-24 16:20 | XMS_ITS | Encounter Summary ---
Author Organization [employer] ([place], [place], [place], [place]) Address [address] [place] [address] Care Team Providers Care Process Server Name Role Phone Adamaris Glass DO Primary Care Provider [phone] Reason for Visit * Reason Comments Medication Refill Encounter Details Date Type Department Care Team (Late st Contact Info) Description 08/24/2023 Refill [facility] Primary Care [address] [facility] [address] [place] [address] Adamaris Glass DO [address] [place] [address] Social History Tobacco Use Types [...] Center Primary Care [address] [place] [address] Adamaris Glass DO [address] [place] [address] 06/26/2026 2:45 PM EDT Appointment [address] [place] [address] documented as of this encounter Visit Diagnoses Not on filedocumented in this encounter Care Teams Process Server Relationship Specialty Start Date End Date Adamaris Glass DO PCP - General Family Medicine 11/18/22 documented as of this encounter
--- OUTSIDE RECORDS SUMMARY | 2025-07-24 16:20 | XMS_ITS | Encounter Summary ---
Author Organization [employer] ([place], [place], [place], [place]) Address [address] [place] [address] Care Team Providers Care Director Of Hemophilia Name Role Phone Adamaris Harmon DO Primary Care Provider [phone] Reason for Visit * Reason Onset Date Comments Appointment 07/18/2025 Encounter Details Date Type Department Care Team (Late st Contact Info) Description 07/18/2025 Telephone [facility] Primary Care [address] [place] [address] Adamaris Harmon DO [address] [place] [address] Appointment Social History Tobacco Use Types Packs/Day Years [...] Date Larry rded Speak language other than Mosotho at home Not on file 10/05/2023 Want [...] on file documented as of this encounter Miscellaneous Notes * Telephone Encounter - Ana Hernandez CMA - 07/18/2025 11:33 AM EDT Pt scheduled appt. For today * Telephone Encounter - [address] - 07/18/2025 10:22 AM EDT FROM: Corina Britt TO: [facility] ANETA CHAMFERING MACHINE OPERATOR STAFF [[id number]] SUBJECT: Appointment Request PROVIDER: ADAMARIS HARMON [[id number]] DEPARTMENT: [facility] Recorded Future [facility] [[id number]] ENCOUNTER REASON FOR CALL: APPOINTMENT [375] ENCOUNTER TYPE: Telephone REASON FOR APPOINTMENT REQUEST: Requesting Earlier Appointment NEXT AVAILABLE APPOINTMENT SCHEDULED? Yes IF YES, WHEN IS THE APPOINTMENT SCHEDULED? 2025-10-16 LAST VISIT: 2024-09-06 MESSAGE PRIORITY: High ADDITIONAL INFORMATION: Pt called requesting an appointment states she has concerns about an oral bacteria her has from a abscessed tooth. States she was advised it's contagious she would like to be checked. CALLER'S NAME: Lisa Lynn RELATION TO PATIENT: Self [1] PREFERRED LANGUAGE: Mosotho BEST CALL BACK PHONE NUMBER: Home Phone: ([phone]) WHAT IS THE BEST WAY FOR THE OFFICE TO CONTACT YOU?: OK to leave message on voicemail SCRIPT USED: No Script SCRIPTING QUESTIONS/ANSWERS FROM THE WORKFLOW: (Has the patient seen one of our primary care clinicians in the last 3 years?): Yes (Is the patient unconscious, unresponsive, or pulseless?): No (Is the patient requesting an appointment for a medication request or concern?): Yes documented in this encounter Plan of Treatment Upcoming Encounters Date Type Department Care Team (Late st Contact Info) Description 10/16/2025 1:00 PM EST Office Visit [facility] Primary Care [address] [place] [address] Adamaris Harmon DO [address] [place] [address] 06/26/2026 2:45 PM EDT Appointment [facility] [address] [facility] [address] [place] [address] documented as of this encounter Visit Diagnoses Not on filedocumented in this encounter Care Teams Director Of Hemophilia Relationship Specialty Start Date End Date Adamaris Harmon DO PCP - General Family Medicine 11/18/22 documented as of this encounter
--- OUTSIDE RECORDS SUMMARY | 2025-07-24 16:20 | XMS_ITS | Clinical Summary ---
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 Hypothyroidism 09/08/2021 Vitamin D deficiency 09/08/2021 Depressive disorder 01/05/2021 Perimenopause 01/05/2021 Zinc deficiency 01/05/2021 Encounters Date Type Department Care Team Description 07/18/2025 2:15 PM EDT Video - Telemedicine [facility] Primary Care [address] [place] [address] Adamaris Glass DO Tick bite, unspecified site, initial encounter (Primary Dx); Medium-risk exposure to infectious patient; Pain in other joint; Screening for cardiovascular condition; Vitamin D deficiency 07/18/2025 Telephone [facility] Primary Care [address] [place] [address] Adamaris Glass DO Appointment 06/24/2025 1:27 PM EDT - 06/24/2025 11:59 PM EDT Hospital Encounter [facility] [address] [facility] [address] [place] [address] Adamaris Glass DO Discharge Disposition: Home or Self Care 06/24/2025 Outside Orders [facility] [address] [facility] [address] [place] [address] Adamaris Glass DO Visit for screening mammogram (Primary Dx) 06/24/2025 Travel 05/21/2025 Refill [facility] Primary Care [address] [place] [address] Adamaris Glass DO Hypothyroidism, unspecified type from Last 3 Months Family History Medical History Relation Name Comments Breast cancer Neg Hx Ovarian cancer Neg Hx Social History Tobacco Use Types Packs/Day Years [...] Date Larry rded Speak language other than Central African at home Not on file 10/05/2023 Want [...] Description 10/16/2025 1:00 PM EST Office Visit [facility] Primary Care [address] [place] [address] Adamaris Glass, [address] [place] [address] 06/26/2026 2:45 PM EDT Appointment [facility] Breast [facility] [address] [facility] [address] [place] [address] Health Maintenance Due Date Last Done Comments CT Colonography 1973 FOBT/FIT 1973 Fit-DNA (Cologuard) 1973 Sigmoidoscopy 1973 HIV Screening 01/19/1988 Hepatitis C Screening 1991 DTAP/TDAP/TD VACCINES (1 - Tdap) 01/19/1992 Pneumococcal 50+ years (1 of 2 - PCV) 01/19/1992 Shingles Vaccine (Zoster) (1 of 2) 2023 COVID-19 VACCINE (2 - 2024-2 6 season) 2025 02/12/2021 Influenza Vaccine (#1) 2025 Lipid Panel 12/23/2025 12/23/2022 Pap Smear 12/23/2025 12/23/2022 Tobacco Cessation Counseling and Screening (12+) 03/20/2026 03/20/2025 Breast Cancer Screening 06/24/2027 06/24/20 25, 06/21/2024, 06/20/2023, Additional history exists Colonoscopy 02/25/2033 02/25/2023 Colorectal Cancer Screening 02/25/2033 Procedures Procedure Name Priority Date/Time Associated Diagnosis [...] the next mammogram. At our facility, a sauk-su[place] marker is positioned over a visible skin [...] 1973 Images reviewed, interpreted, and dictated by MD Lila Cardenas 06/24/2025 7:08 PM EDT BILATERAL SCREENING DIGITAL [...] No suspicious change identified. Adamaris Glass DO [facility] MAMMOGRAPHY ORDERABLES Fin al Result * (ABNORMAL) Lipid Panel With LDL/HDL Ratio (12/23/2022 11:13 AM EDT) Cholesterol, Total 222(H) 100 - 199 mg/dL [...] - 12/24/2022 4:06 AM EDT Performed at: [address] [id number] Affiliate Marketing Specialist: Maik Davila PhD, Phone: [phone] us Adamaris Glass DO LAB BLOOD ORDERABLES Final Res ult [facility] * Liquid-based pap smear, screening (12/23/2022 12:00 [...] - 12/29/2022 5:06 PM EDT Performed at: [facility] [address] [place] [id number] Affiliate Marketing Specialist: Ana Alarcon MD, Phone: [phone] Specimen Comment: No. of containers..01 ThinPrep Vial Resulting Agency Comment [id number] us Adamaris Glass DO PATHOLOGY/CYTOLOGY ORDERABLES Final Result [facility] from Last 3 Months or Most Recently Relevant to [place] [id number] BLUE CROSS/BLUE SHIELD Care Teams Profile Saw Operator Relationship Specialty Start Date End Date Adamaris Glass DO PCP - General Family Medicine 11/18/22
--- OUTSIDE RECORDS SUMMARY | 2025-07-24 16:20 | XMS_ITS | Encounter Summary ---
Author Organization [employer] ([place], [place], [place], [place]) Address [address] [place] [address] Care Team Providers Care Office Equipment Technician Name Role Phone Adamaris Glass DO Primary Care Provider [phone] Reason for Visit * Reason Comments Medication Refill Encounter Details Date Type Department Care Team (Late st Contact Info) Description 07/12/2024 Refill [facility] Primary Care [address] [facility] [address] [place] [address] Adamaris Glass DO [address] [facility] [address] [place] [address] Social History Tobacco Use Types [...] Date Larry rded Speak language other than Finnish at home Not on file 10/05/2023 Want [...] Description 10/16/2025 1:00 PM EST Office Visit [facility] Primary Care [address] [place] [address] Adamaris Glass DO [address] [place], [place] [address] 06/26/2026 2:45 PM EDT Appointment [facility] [address] [facility] [address] [place] [address] documented as of this encounter Visit Diagnoses Not on filedocumented in this encounter Care Teams Office Equipment Technician Relationship Specialty Start Date End Date Adamaris Glass DO PCP - General Family Medicine 11/18/22 documented as of this encounter
--- OUTSIDE RECORDS SUMMARY | 2025-07-24 16:20 | XMS_ITS | Encounter Summary ---
Author Organization [employer] ([place], [place], [place], [place]) Address [address] [place] [address] Care Team Providers Care Marketing Underwriter Name Role Phone Adamaris Glass DO Primary Care Provider [phone] Reason for Referral * Mammography (Routine) - Closed Specialty Diagnoses / Procedures Referred By Contac t Referred To Contact Radiology Diagnoses Visit for screening mammogram Procedures MM digital mammo screen with sury bilateral Adamaris Glass DO [address] [place] [address] Phone: tel: fax: [facility] [address] [facility] [address] [place] [address] Phone: tel: fax: Referral ID Status Reason Start Date Expiration Date Visits Re quested Visits Authorized [id number] Closed 06/24/2025 06/24/2026 1 1 Encounter Details Date Type Department Care Team (Late st Contact Info) Description 06/21/2024 Outside Orders [facility] [address] [facility] [address] [place] [address] Adamaris Glass DO [address] [place] [address] Visit for screening mammogram (Primary [...] Date Larry rded Speak language other than Polish at home Not on file 10/05/2023 Want [...] Description 10/16/2025 1:00 PM EST Office Visit [facility] Primary Care [address] [place] [id number] Adamaris Glass, [address] [place] [address] 06/26/2026 2:45 PM EDT Appointment [address] [place] [address] documented as of this encounter Results * MM digital mammo screen with sury bilateral (06/24/2025 1:49 PM EDT) Anatomical Region [...] the next mammogram. At our facility, a [place] marker is positioned over a visible skin [...] No suspicious change identified. Adamaris Glass DO [facility] [place] Fin al Result documented in this encounter Visit Diagnoses Diagnosis Visit for screening mammogram- Primary documented in this encounter Care Teams Marketing Underwriter Relationship Specialty Start Date End Date Adamaris Glass DO PCP - General Family Medicine 11/18/22 documented as of this encounter
--- OUTSIDE RECORDS SUMMARY | 2025-07-24 16:20 | XMS_ITS | Encounter Summary ---
Author Organization [employer] ([place], [place], [place], [place]) Address [address] [place] [address] Care Team Providers Care Track Layer Name Role Phone Adamaris Glass DO Primary Care Provider [phone] Reason for Visit * Reason Onset Date Comments Medication Refill 02/16/2024 Encounter Details Date Type Department Care Team (Late st Contact Info) Description 02/16/2024 Refill [facility] Primary Care [address] [place] [address] Adamaris Glass DO [address] [facility] [address] [place] [address] Social History Tobacco Use Types [...] Date Larry rded Speak language other than Lithuanian at home Not on file 10/05/2023 Want [...] Description 10/16/2025 1:00 PM EST Office Visit [facility] Primary Care [address] [place] [address] Adamaris Glass DO [address] [place], [place] [id number] 06/26/2026 2:45 PM EDT Appointment [facility] [address] [facility] [address] [place] [address] documented as of this encounter Visit Diagnoses Not on filedocumented in this encounter Care Teams Track Layer Relationship Specialty Start Date End Date Adamaris Glass DO PCP - General Family Medicine 11/18/22 documented as of this encounter
== END 2025-07-24 23:59 | disposition home or self-care (01) ==
LOC: LAB 16:18
PROVIDERS: PCP Family Medicine; Visit Provider Family Medicine
DX: E55.9 Vitamin D deficiency, unspecified (principal); Z13.6 Encounter for screening for cardiovascular disorders; M25.59 Pain in other specified joint; Z91.89 Other specified personal risk factors, not elsewhere classified; Z20.9 Contact with and (suspected) exposure to unspecified communicable disease; E53.8 Deficiency of other specified B group vitamins; E03.9 Hypothyroidism, unspecified; R79.89 Other specified abnormal findings of blood chemistry; W57.XXXA Bitten or stung by nonvenomous insect and other nonvenomous arthropods, initial encounter

== ENCOUNTER 2025-08-01 08:47 | Outpatient (CLI) | payer BC, OTHER, SELFPAY ==
--- OUTSIDE RECORDS SUMMARY | 2025-06-24 12:27 | XMS_ITS | Encounter Summary ---
Author Organization [facility] ([place], [place], [place], [place], [place]) Address [address] [place] [address] Care Team Providers Care Speeder Tender Name Role Phone Adamaris Glass DO Primary Care Provider [phone] Reason for Visit * Mammography (Routine) - Closed Specialty Diagnoses / Procedures Referred By Contac t Referred To Contact Radiology Diagnoses Visit for screening mammogram Procedures MM digital mammo screen with taqueria bilateral Adamaris Glass DO [address] [place] [address] Phone: tel: fax: [facility] [address] [place] [phone] Phone: tel: fax: Referral ID Status Reason Start Date Expiration Date Visits Re quested Visits Authorized [id number] Closed 06/24/2025 06/24/2026 1 1 Encounter Details Date Type Department Care Team (Latest Contact Info) Description 06/24/2025 1:27 PM EDT - 06/24/2025 11:59 PM EDT Hospital Encounter [facility] [address] [place] [phone] Adamaris Glass DO [address] [place] [address] Discharge Disposition: Home or Self Care Social History Tobacco Use Types Packs/Day Years Used Date Smoking Tobacco: Some Days Cigarettes 0.3 15 Smokeless Tobacco: Never Alcohol Use Standard Drinks/Week Comments Yes 0 (1 standard drink = 0.6 oz pur e alcohol) occasional Overall Financial Resource Strain (CARDIA) Answe r Date Recorded How hard is it for you to pa y for the very basics like food, housing, medical care, and heating? Not very hard 11/09/2023 Hunger Vital Sign Answer Date Recorded Within the past 12 months, y ou worried that your food would run out before you got the money to buy more. Never true 11/09/19 24 Within the past 12 months, t he food you bought just didn't last and you didn't have money to get more. Never true 11/09/2023 PRAPARE - Transportation Answer Date Re corded In the past 12 months, has l ack of transportation kept you from medical appointments or from getting medications? No 10/27 In the past 12 months, has l ack of transportation kept you from meetings, work, or from getting things needed for daily living? No 11/09/2023 Transportation Needs Answer Date Record ed Transportation unreliable past 12 months Not on file 01/04/2024 Family and Community Support Answer Xu e Recorded Help with Day to Day Activities Not on file 10/05/2023 Feeling Lonely or Isolated Not on file 10/05 Educational Attainment Answer Date Larry rded Speak language other than Armenian at home Not on file 10/05/2023 Want help with school or training Not on file 10/05/2023 Substance Use Answer Date Recorded Used prescription meds for non-medical reasons N ot on file 10/05/2023 Used illegal drugs past 12 months Not on file 10/05/2023 Comments No Sex and Gender Information Value Date Recorded Sex Assigned at Not on file Legal Sex Female 3:57 PM CDT Gender Identity Not on file Sexual Orientation Not on file documented as of this encounter Last Filed Vital Signs Vital Sign Reading Time Taken Comments Blood Pressure - - Pulse - - Temperature - - Respiratory Rate - - Oxygen Saturation - - Inhaled Oxygen Concentration - - Weight 71.7 kg (158 lb) 06/24/2025 1:49 PM EDT Height 167.6 cm (5' 6 ) 06/24/2025 1:49 PM EDT Body Mass Index 25.5 06/24/2025 1:49 PM EDT documented in this encounter Medications at Time of Discharge cholecalciferol, vitamin D3, (VITAMIN D3 ORAL) Take by mouth. cream base no.101, bulk, CreaIndications:P erimenopause Progesterone 20mg/0.5ml TD cream apply 0.5ml TD qhs. 2 02/29/2024 docosahexaenoic acid/epa (FISH OIL ORAL) Take by mouth. fluconazole (DIFLUCAN) 150 MG tablet Take one tablet now and repeat in 3 days. 2 tablet 04/06/2024 ibuprofen (ADVIL,MOTRIN) 600 MG tablet Take 1 tablet (600 mg total) by mouth every 6 (six) hours as needed. 09/23/2023 Lactobac no.41/Bifidobact no.7 (PROBIOTIC-10 ORAL) Take by mouth. liothyronine (CYTOMEL) 5 MCG tabletIndications :Hypothyroidism, unspecified type TAKE 1 TABLET(5 MCG) BY MOUTH DAILY 90 tablet 1 05/21/2025 loratadine (CLARITIN) 10 mg tablet Take 1 tablet (10 mg total) by mouth daily. Missing or Non-Formulary Medication 5-HTP. Synthroid 100 mcg tabletIndications :Hypothyroidism, unspecified type Take 1 tablet (100 mcg total) by mouth Daily (0600). 90 tablet 1 07/16/2024 documented as of this encounter Plan of Treatment Upcoming Encounters Date Type Department Care Team (Late st Contact Info) Description 10/16/2025 1:00 PM EST Office Visit [facility] Primary [facility] [address] [place] [address] Adamaris Glass DO [address] [place] [address] 06/26/2026 2:45 PM EDT Appointment [facility] [address] [place] [address] documented as of this encounter Procedures Procedure Name Priority Date/Time Associated Diagnosis Comments MM DIGITAL MAMMO SCREEN WITH TAQUERIA BILATERAL Routine 06/24/2025 1:49 PM EDT Visit for screening mammogram documented in this encounter Results * MM digital mammo screen with taqueria bilateral (06/24/2025 1:49 PM EDT) Anatomical Region Laterality Modality Breast Bilateral Mammography 06/24/2025 7:05 PM EDT Impressions 06/24/2025 7:08 PM EDT No mammographic evidence of malignancy. BI-RADS CATEGORY: 2 , BENIGN FINDING(S). RECOMMENDED FOLLOW-UP: Routine annual screening mammography. A letter including results and recommendations was sent to the patient. Density notification was provided as well. Patient information entered into a reminder system with a target due date for the next mammogram. At our facility, a [place] marker is positioned over a visible skin lesion and a linear marker is used to indicate a scar. A triangular marker is placed on a self reported palpable finding. Mammography does not detect approximately 10-15% of breast cancers. An annual clinical breast exam by the patient's breast care physician and regular monthly self breast exams by the patient are integral parts of breast cancer screening. A normal mammogram does not completely exclude the presence of breast cancer, especially if there is an abnormal finding on physical exam. When clinically indicated, a biopsy should not be deferred because of a normal mammogram report. : 1975 Images reviewed, interpreted, and dictated by Kaylan Rome MD Narrative 06/24/2025 7:08 PM EDT BILATERAL SCREENING DIGITAL MAMMOGRAPHY CLINICAL INDICATION: Routine screening FAMILY HISTORY: No family history.. TECHNIQUE: Bilateral CC and MLO views were obtained with 2-D and 3-D digital acquisitions. The study was read with the assistance of CAD. COMPARISON: Previous exams back to 2021. FINDINGS: No spiculated mass, calcifications or architectural distortion is seen. The breasts are heterogeneously dense, which may obscure small masses. No suspicious change identified. Adamaris Glass DO IMG MAMMOGRAPHY ORDERABLES Fin al Result documented in this encounter Visit Diagnoses Not on filedocumented in this encounter Care Teams Speeder Tender Relationship Specialty Start Date End Date Adamaris Glass DO PCP - General Family Medicine 11/18/22 documented as of this encounter
--- OUTSIDE RECORDS SUMMARY | 2025-07-18 13:15 | XMS_ITS | Encounter Summary ---
Author Organization [employer] ([place], [place], [place], [place], [place]) Address [address] [place] [address] Care Team Providers Care Driver/Merchandiser Name Role Phone Adamaris Glass DO Primary Care Provider [phone] Reason for Visit * Reason Comments Infection Signs dx'd with co ntagious oral bacteria from an abscess Encounter Details Date Type Department Care Team (Latest Contact Info) Description 07/18/2025 2:15 PM EDT Video - Telemedicine [facility] Primary Care [address] [place] [address] Adamaris Glass DO [address] [place] [address] Tick bite, unspecified site, initial encounter (Primary Dx); Medium-risk exposure to infectious patient; Pain in other joint; Screening for cardiovascular condition; Vitamin D deficiency Social History Tobacco Use Types Packs/Day Years [...] Date Larry rded Speak language other than Turkish at home Not on file 10/05/2023 Want [...] Sign Reading Time Taken Comments Blood Pressure 124/72 07/18/2025 11:06 AM EDT Pulse - - Temperature - - Respiratory Rate - - Oxygen Saturation - - Inhaled Oxygen Concentration - - Weight 71.7 kg (158 lb) 07/18/2025 11:06 AM EDT Height 167.6 cm (5' 6 ) 07/18/2025 11:06 AM EDT Body Mass Index 25.5 07/18/2025 11:06 AM EDT documented in this encounter Progress Notes * Nithyajosealexander Glass, DO - 07/18/2025 2:15 PM EDT Subjective: Lisa Lynn is a 50 y.o. female. The following consent language was reviewed verbally with the patient in full: Mindy, I am using a tool to help me do my notes. It is recording our conversation and creates my notes automatically and I can focus on our discussion instead of typing in the room. Is that okay with you? The patient demonstrated understanding and verbally agreed to the above consent language. All questions were addressed, and the patient provided informed consent to proceed. Chief Complaint Patient presents with Infection Signs dx'd with contagious oral bacteria from an abscess I have reviewed and/or updated the following: History of Present Illness Lisa Lynn is a 50 year old female who presents with concerns about potential exposure to Lyme disease and a dental infection. Her , Dario, was diagnosed with Lyme disease three weeks ago, raising her concern about potential exposure. She is worried about having contracted Lyme disease herself, especially since she might have been exposed to the same tick bite. She experiences some joint pain but attributes it to recent yoga classes. She denies rashes. Dario also has a bacterial infection in his mouth, possibly related to an abscessed tooth. She is concerned about the potential for this infection to be contagious and whether she might have contracted it. She reports no dental pain or white patches in her mouth, although she has been hyper-aware of her tongue's appearance after learning about her 's condition.she has had increase in arthralgias but no new rash. She is uncertain about tick bite. She mentions feeling 'a little throaty,' which she attributes to possible allergies. She is currently taking vitamin D, vitamin B12, and a probiotic. She has not yet completed thyroid testing that was ordered last August, but she has the lab orders and plans to complete them. Review of Systems All other systems reviewed and are negative. Objective: BP 124/72 Ht 1.676 m (5' 6 ) Wt 71.7 kg (158 lb) BMI 25.50 kg/m?? Current Outpatient Medications Medication Instructions cholecalciferol, vitamin D3, (VITAMIN D3 ORAL) oral cream base no.101, bulk, Crea Progesterone 20mg/0.5ml TD cream apply 0.5ml TD qhs docosahexaenoic acid/epa (FISH OIL ORAL) oral fluconazole (DIFLUCAN) 150 MG tablet Take one tablet now and repeat in 3 days ibuprofen (MOTRIN) 600 mg, oral, Every 6 hours PRN Lactobac no.41/Bifidobact no.7 (PROBIOTIC-10 ORAL) oral liothyronine (CYTOMEL) 5 MCG tablet TAKE 1 TABLET(5 MCG) BY MOUTH DAILY loratadine (CLARITIN) 10 mg, oral, Daily Missing or Non-Formulary Medication 5-HTP Synthroid 100 mcg, oral, Daily (0600) Physical Exam Constitutional: Appearance: Normal appearance. HENT: Head: Normocephalic and atraumatic. Nose: Nose normal. Mouth/Throat: Mouth: Mucous membranes are moist. Pharynx: Oropharynx is clear. Eyes: Extraocular Movements: Extraocular movements intact. Conjunctiva/sclera: Conjunctivae normal. Pulmonary: Effort: Pulmonary effort is normal. Neurological: General: No focal deficit present. Mental Status: She is alert. Psychiatric: Mood and Affect: Mood normal. Behavior: Behavior normal. Thought Content: Thought content normal. Judgment: Judgment normal. Physical Exam Assessment & Plan: 1. Tick bite, unspecified site, initial encounter 2. Medium-risk exposure to infectious patient 3. Pain in other joint 4. Screening for cardiovascular condition 5. Vitamin D deficiency No visits with results within 13 Week(s) from this visit. Latest known visit with results is: Video - Telemedicine on 02/29/2024 Component Date Value Triiodothyronine,Free,Se* 07/18/2024 2.7 T4,Free(Direct) 07/18/2024 0.69 (L) Thyroxine (T4) 07/18/2024 4.3 (L) TSH 07/18/2024 0.805 DHEA-Sulfate 07/18/2024 214.0 Estradiol, Sensitive 07/18/2024 156.2 Progesterone 07/18/2024 18.7 Testosterone, Total, LC/* 07/18/2024 36.3 Testosterone, Free 07/18/2024 0.63 % Free Testosterone 07/18/2024 1.73 LH 07/18/2024 3.9 FSH 07/18/2024 3.5 Pregnenolone, MS 07/18/2024 54 WBC 07/18/2024 10.2 RBC 07/18/2024 5.00 Hemoglobin 07/18/2024 15.5 Hematocrit 07/18/2024 48.4 (H) MCV 07/18/2024 97 MCH 07/18/2024 31.0 MCHC 07/18/2024 32.0 RDW 07/18/2024 12.1 Platelets 07/18/2024 337 Ferritin, Serum 07/18/2024 178 (H) Vitamin D, 25-Hydroxy 07/18/2024 75.9 Vitamin B12 07/18/2024 418 Plan: Diagnoses and all orders for this visit: Tick bite, unspecified site, initial encounter - Lyme disease, western blot; Future Medium-risk exposure to infectious patient - CBC (Hemogram only); Future Pain in other joint - CBC (Hemogram only); Future - Lyme disease, western blot; Future - BALAJI W/Rfx to all if Positive; Future Screening for cardiovascular condition - Comprehensive metabolic panel; Future - NMR LipoProf wSubCls+Graph; Future Vitamin D deficiency - Vitamin D, 25-Hydroxy; Future No follow-ups on file. Assessment & Plan Adult Wellness Visit Scheduled a wellness visit for September. Discussed the option of reviewing lab results before the new year for peace of mind. - Mail lab orders for CBC, Lyme test, BALAJI, and physical labs - Schedule a Zoom follow-up to review lab results before the new year Hypothyroidism Thyroid function tests are pending as she has not completed the labs from last August. - Complete thyroid function tests using the existing lab orders Vitamin D deficiency Currently taking vitamin D supplementation. Vitamin B12 deficiency Currently taking vitamin B12 supplementation. Virtual Video Informed Consent: The risks, benefits, and alternatives to the virtual visit were explained to the patient and the patient verbally consented to this modality of care. The visit was carried out using secure real-time audio-visual technology and all parties in the room were identified and approved by the patient prior to the consult. Unless noted otherwise, the provider was located at their usual clinic location, and the patient was at their place of residence. Any physical exam was assisted by the patient and/ora caregiver. PATIENT LOCATION: home PROVIDER LOCATION: office PATIENT INFORMED OF TREATING MEDICAL GROUP: YES DATE OF SERVICE: 07/18/2025 START TIME: 4:07 STOP TIME: 4:22 This note was partially generated using [employer]ict[employer] System, and there may be some incorrect words, spellings, and punctuation that were not noted in checking the note before saving. Note to Patient: The Century Cure Act makes medical noted like these available to patients in the interest of transparency. However, be advised this is a medical document. It is intended as peerto peer communication. It is written in medical language and may contain abbreviations or verbiage that are unfamiliar. It may appear blunt or direct. Medical documents are intended to carry relevantinformation, facts as evident, and the clinical opinion of the physician. documented in this encounter Plan of Treatment Upcoming Encounters Date Type Department Care Team (Late st Contact Info) Description 10/16/2025 1:00 PM EST Office Visit [facility] Primary Care [address] [place] [address] Adamaris Glass DO [address] [place] [address] 06/26/2026 2:45 PM EDT Appointment [facility] [address] [place] [address] Scheduled Orders Name Type Priority Associated Diagnoses Orde r Schedule CBC (Hemogram only) Lab Routine Medium-risk exposure to infectious patient Pain in other joint Expected: 07/18/2025, Expires: 10/16/2025 Lyme disease, western blot Lab Routine Tick bite, unspecified site, initial encounter Pain in other joint Expected: 07/18/2025 (Approximate), Expires: 10/16/2025 BALAJI W/Rfx to all if Positive Lab Routine Pain in other joint Expected: 07/18/2025, Expires: 10/16/2025 Comprehensive metabolic panel Lab Routine Screening for cardiovascular condition Expected: 07/18/2025, Expires: 10/16/2025 NMR LipoProf wSubCls+Graph Lab Routine Screening for cardiovascular condition Expected: 07/18/2025, Expires: 10/16/2025 Vitamin D, 25-Hydroxy Lab Routine Vitamin D deficiency Expected: 07/18/2025, Expires: 10/16/2025 documented as of this encounter Visit Diagnoses Diagnosis Tick bite, unspecified site, initial encounter- Primary Medium-risk exposure to infectious patient Pain in other joint Screening for cardiovascular condition Screening for other and unspecified cardiovascular conditions Vitamin D deficiency Unspecified vitamin D deficiency documented in this encounter Care Teams Driver/Merchandiser Relationship Specialty Start Date End Date Adamaris Glass DO PCP - General Family Medicine 11/18/22 documented as of this encounter
--- OUTSIDE RECORDS SUMMARY | 2025-08-01 08:57 | XMS_ITS | Encounter Summary ---
Author Organization [employer] ([place], [place], [place], [place], [place]) Address [address] [place] [address] Care Team Providers Care Weather Teacher Name Role Phone Adamaris Glass DO Primary Care Provider Reason for Referral * Mammography (Routine) - Closed Specialty Diagnoses / Procedures Referred By Contac t Referred To Contact Radiology Diagnoses Visit for screening mammogram Procedures MM digital mammo screen with sury bilateral Adamaris Glass DO [address] [place] [address] Phone: tel: fax: [facility] [address] [facility] [address] [place] [address] Phone: tel: fax: Referral ID Status Reason Start Date Expiration Date Visits Re quested Visits Authorized [id number] Closed 06/24/2025 06/24/2026 1 1 Encounter Details Date Type Department Care Team (Late st Contact Info) Description 06/21/2024 Outside Orders [address] [place] [address] Adamaris Glass DO [address] [place] [address] Visit for screening mammogram (Primary [...] Date Larry rded Speak language other than Bolivian at home Not on file 10/05/2023 Want [...] Health Primary Care [address] [place] [address] Adamaris Glass DO [address] [place], [place] [id number] 06/26/2026 2:45 PM EDT Appointment [address] [place] [address] documented as of this encounter [...] the next mammogram. At our facility, a [place] marker is positioned over a visible skin [...] No suspicious change identified. Adamaris Glass DO [facility] [place]AMMO[place]HY ORDERABLES Fin al Result documented in this encounter Visit Diagnoses Diagnosis Visit for screening mammogram- Primary documented in this encounter Care Teams Weather Teacher Relationship Specialty Start Date End Date Adamaris Glass DO PCP - General Family Medicine 11/18/22 documented as of this encounter
--- OUTSIDE RECORDS SUMMARY | 2025-08-01 08:57 | XMS_ITS | Encounter Summary ---
Author Organization [employer] ([place], [place], [place], [place], [place]) Address [address] [place] [address] Care Team Providers Care Ware Dresser Name Role Phone Adamaris Glass DO Primary Care Provider [phone] Reason for Visit * Reason Onset Date Comments Medication Refill 02/16/2024 Encounter Details Date Type Department Care Team (Late st Contact Info) Description 02/16/2024 Refill [facility] Primary Care [address] [place] [address] Adamaris Glass DO [address] [facility] [address] [place] [address] Social History Tobacco Use Types [...] Date Larry rded Speak language other than Scottish at home Not on file 10/05/2023 Want [...] Description 10/16/2025 1:00 PM EST Office Visit [facility] Primary Care [address] [place] [address] Adamaris Glass DO [address] [place], [place] [address] 06/26/2026 2:45 PM EDT Appointment [address] [place] [address] documented as of this encounter Visit Diagnoses Not on filedocumented in this encounter Care Teams Ware Dresser Relationship Specialty Start Date End Date Adamaris Glass DO PCP - General Family Medicine 11/18/22 documented as of this encounter
--- OUTSIDE RECORDS SUMMARY | 2025-08-01 08:57 | XMS_ITS | Encounter Summary ---
Author Organization [employer] ([place], [place], [place], [place], [place]) Address [address] [place] [address] Care Team Providers Care Social Service Assistant Name Role Phone Adamaris Glass DO Primary Care Provider [phone] Reason for Visit * Reason Comments Medication Refill Encounter Details Date Type Department Care Team (Late st Contact Info) Description 07/12/2024 Refill [facility] Primary Care [address] [facility] [address] [place] [address] Adamaris Glass DO [address] [facility] [address] [place] [address] Social History Tobacco Use Types [...] Date Larry rded Speak language other than Nepalese at home Not on file 10/05/2023 Want [...] Description 10/16/2025 1:00 PM EST Office Visit [facility] Primary Care [address] [place] [address] Adamaris Glass DO [address] [place], [place] [address] 06/26/2026 2:45 PM EDT Appointment [facility] [address] [facility] [address] [place] [address] documented as of this encounter Visit Diagnoses Not on filedocumented in this encounter Care Teams Social Service Assistant Relationship Specialty Start Date End Date Adamaris Glass DO PCP - General Family Medicine 11/18/22 documented as of this encounter
--- OUTSIDE RECORDS SUMMARY | 2025-08-01 08:57 | XMS_ITS | Encounter Summary ---
Author Organization [employer] ([place], [place], [place], [place], [place]) Address [address] [place] [address] Care Team Providers Care Cab Station Attendant Name Role Phone Adamaris Glass DO Primary Care Provider [phone] Reason for Referral * Mammography (Routine) - Closed Specialty Diagnoses / Procedures Referred By Contac t Referred To Contact Diagnoses Visit for screening mammogram Procedures MM digital mammo screen with sury bilateral Adamaris Glass DO [address] [place] [address] Phone: tel: fax: Referral ID Status Reason Start Date Expiration Date Visits Re quested Visits Authorized [id number] Closed 06/20/2023 12/17/2023 1 1 Encounter Details Date Type Department Care Team (Late st Contact Info) Description 06/18/2022 Outside Orders [facility] Breast [address] [place] [address] Adamaris Glass DO [address] [place] [address] Visit for screening mammogram (Primary [...] 10/16/2025 1:00 PM EST Office Visit [facility] Primary Care [address] [place] [address] [employer] [address] [place] [address] 06/26/2026 2:45 PM EDT Appointment [facility] Breast [facility] [address] [facility] [address] [place] [address] documented as of this encounter [...] the next mammogram. At our facility, a [place] marker is positioned over a visible skin [...] family history of breast cancer. COMPARISON STUDY: [facility] FINDINGS: Craniocaudal and mediolateral oblique images [...] of computer-aided detection (CAD). Adamaris Glass DO [facility] [place] ORDERABLES Fin al Result documented in this encounter Visit Diagnoses Diagnosis Visit for screening mammogram- Primary Visit for screening mammogram documented in this encounter Care Teams Cab Station Attendant Relationship Specialty Start Date End Date Adamaris Glass DO PCP - General Family Medicine 11/18/22 documented as of this encounter
--- OUTSIDE RECORDS SUMMARY | 2025-08-01 08:57 | XMS_ITS ---
Author Organization Unknown ENCOUNTERS Encounter Performer Location Date Diagnosis Diagnosis Status Emergency [place] [address] [place] [address] [id number] JOSE ANGEL Pre Admit [address] [place] [place] [address] [id number] *Note: Encounters from your own facility or health system may be excluded. Allergies, Adverse Reactions, Alerts Allergen Type Severity Identification Date Unable to Assess drug allergy [id number] Medications Name Date Quantity Days Supplied GPI Number
--- OUTSIDE RECORDS SUMMARY | 2025-08-01 08:57 | XMS_ITS | Referral Summary ---
Author Organization [employer] ([place], [place], [place], [place], [place]) Address [address] [place] [address] Care Team Providers Care Processor Inspector Name Role Phone Adamaris Glass DO Primary Care Provider [phone] Encounters Date Type Department Care Team Description 07/18/2025 2:15 PM EDT Video - Telemedicine [facility] Primary Care [address] [place] [address] Adamaris Glass DO Tick bite, unspecified site, initial encounter (Primary Dx); Medium-risk exposure to infectious patient; Pain in other joint; Screening for cardiovascular condition; Vitamin D deficiency 07/18/2025 Telephone [facility] Primary [place] [address] [place] [address] Adamaris Glass DO Appointment 06/24/2025 Outside Orders [facility] [address] [facility] [address] [place] [address] Adamaris Glass DO Visit for screening mammogram (Primary Dx) 06/24/2025 Travel 06/24/2025 1:27 PM EDT - 06/24/2025 11:59 PM EDT Hospital Encounter [facility] [address] [facility] [address] [place] [address] Adamaris Glass DO Discharge Disposition: Home or Self Care 05/21/2025 Refill [facility] Primary Care [address] [facility] [address] [place] [address] Adamaris Glass DO Hypothyroidism, unspecified [...] Date Larry rded Speak language other than South African at home Not on file 10/05/2023 [...] Hospital Primary Care [address] [place] [address] Adamaris Glass DO [address] [place] [address] 06/26/2026 2:45 PM EDT Appointment [facility] Breast Care [address] [facility] [address] [place] [address] Procedures Procedure Name Priority Date/Time [...] the next mammogram. At our facility, a [place] marker is positioned over a visible skin [...] - 12/24/2022 4:06 AM EDT Performed at: [address] [place] [id number] Center Specialists: Maik Davila PhD, Phone: [phone] Adamaris Glass DO LAB BLOOD ORDERABLES Final Res ult Performing Organization Address [facility] Co de Phone Number [facility] * Liquid-based [...] - 12/29/2022 5:06 PM EDT Performed at: [address] [id number] Center Specialists: Ana Alarcon MD, Phone: [phone] Specimen Comment: No. of containers..01 ThinPrep Vial Resulting Agency Comment [id number] Adamaris Glass DO PATHOLOGY/CYTOLOGY ORDERABLES Final Result Performing Organization Address [facility] Co de Phone Number [facility] from Last 3 Months or Most Recently Relevant to Health Maintenance Insurance BLUE CROSS/BLUE SHIELD Care Teams Processor Inspector Relationship Specialty Start Date End Date Adamaris Glass DO PCP - General Family Medicine 11/18/22
--- OUTSIDE RECORDS SUMMARY | 2025-08-01 08:57 | XMS_ITS | Encounter Summary ---
Author Organization [employer] ([place], [place], [place], [place], [place]) Address [address] [place] [address] Care Team Providers Care Property Maintenance Technician Name Role Phone Adamaris Glass DO Primary Care Provider [phone] Reason for Referral * Mammography (Routine) - Authorized Specialty Diagnoses / Procedures Referred By Contac t Referred To Contact Radiology Diagnoses Visit for screening mammogram Procedures MM digital mammo screen with sury bilateral Adamaris Glass DO [address] [place] [address] Phone: tel: fax: [facility] [address] [facility] [address] [place] [address] Phone: tel: fax: Referral ID Status Reason Start Date Expiration Date V isits Requested Visits Authorized [id number] Authorized 06/26/2026 06/26/2027 1 1 Encounter Details Date Type Department Care Team (Late st Contact Info) Description 06/24/2025 Outside Orders [address] [place] [address] Adamaris Glass DO [address] [place] [address] Visit for screening mammogram (Primary [...] Date Larry rded Speak language other than Romanian at home Not on file 10/05/2023 Want [...] Description 10/16/2025 1:00 PM EST Office Visit [facility] Primary Care [address] [place] [address] Adamaris Glass DO [address] [place] [address] 06/26/2026 2:45 PM EDT Appointment [address] [place] [address] Scheduled Orders Name Type Priority Associated Diagnoses Orde r Schedule MM digital mammo screen with sury bilateral Imaging Routine Visit for screening mammogram Expected: 06/26/2026, Expires: 06/26/2027 documented as of this encounter Visit Diagnoses Diagnosis Visit for screening mammogram- Primary documented in this encounter Care Teams Property Maintenance Technician Relationship Specialty Start Date End Date Adamaris Glass DO PCP - General Family Medicine 11/18/22 documented as of this encounter
--- OUTSIDE RECORDS SUMMARY | 2025-08-01 08:57 | XMS_ITS | Encounter Summary ---
Author Organization [employer] ([place], [place], [place], [place], [place]) Address [address] [place] [address] Care Team Providers Care Billet Header Name Role Phone Adamaris Glass DO Primary Care Provider [phone] Reason for Visit * Reason Comments Medication Refill Encounter Details Date Type Department Care Team (Late st Contact Info) Description 08/24/2023 Refill [facility] Primary Care [address] [facility] [address] [place] [address] Adamaris Glass DO [address] [place] [address] Social History Tobacco Use Types [...] Description 10/16/2025 1:00 PM EST Office Visit [facility] Primary Care [address] [place] [address] Adamaris Glass DO [address] [place] [address] 06/26/2026 2:45 PM EDT Appointment [address] [place] [address] documented as of this encounter Visit Diagnoses Not on filedocumented in this encounter Care Teams Billet Header Relationship Specialty Start Date End Date Adamaris Glass DO PCP - General Family Medicine 11/18/22 documented as of this encounter
--- OUTSIDE RECORDS SUMMARY | 2025-08-01 08:57 | XMS_ITS | Clinical Summary ---
Author Organization [facility] Address [address] [place] [id number] Care Team Providers Care Interventional Physician Name Role Phone Unavailable Primary Care Provider [...]
--- OUTSIDE RECORDS SUMMARY | 2025-08-01 08:57 | XMS_ITS | Encounter Summary ---
Author Organization [employer] ([place], [place], [place], [place], [place]) Address [address] [place] [address] Care Team Providers Care Seafood Technology Specialist Name Role Phone Adamaris Glass DO Primary Care Provider [phone] Reason for Visit * Reason Comments Medication Refill Encounter Details Date Type Department Care Team (Late st Contact Info) Description 10/29/2022 Refill [facility] Primary Care [address] [place] [address] Adamaris Glass DO [address] [place] [address] Hypothyroidism, unspecified type (Primary Dx) [...] Description 10/16/2025 1:00 PM EST Office Visit [facility] Primary Care [address] [place] [address] Adamaris Glass DO [address] [place] [address] 06/26/2026 2:45 PM EDT Appointment [address] [place] [address] documented as of this encounter Visit Diagnoses Diagnosis Hypothyroidism, unspecified type- Primary documented in this encounter Care Teams Seafood Technology Specialist Relationship Specialty Start Date End Date Adamaris Glass DO PCP - General Family Medicine 11/18/22 documented as of this encounter
--- OUTSIDE RECORDS SUMMARY | 2025-08-01 08:57 | XMS_ITS | Clinical Summary ---
Author Organization [employer] ([place], [place], [place], [place], [place]) Address [address] [place] [address] Care Team Providers Care Real Estate Intern Name Role Phone QuanAdamaris reece Primary Care Provider [phone] Allergies Active Allergy Reactions Criticality Noted Date [...] 07/18/2025 2:15 PM EDT Video - Telemedicine [facility] Primary Care [address] [place] [address] Adamaris Glass DO Tick bite, unspecified site, initial encounter (Primary Dx); Medium-risk exposure to infectious patient; Pain in other joint; Screening for cardiovascular condition; Vitamin D deficiency 07/18/2025 Telephone [facility] Primary Care [address] [place] [address] Adamaris Glass DO Appointment 06/24/2025 1:27 PM EDT - 06/24/2025 11:59 PM EDT Hospital Encounter [facility] [address] [facility] [address] [place] [address] Adamaris Glass DO Discharge Disposition: Home or Self Care 06/24/2025 Outside Orders [facility] [address] [facility] [address] [place] [address] Adamaris Glass DO Visit for screening mammogram (Primary Dx) 06/24/2025 Travel 05/21/2025 Refill [facility] Primary Care [address] [place] [address] Adamaris Glass DO Hypothyroidism, unspecified [...] Date Larry rded Speak language other than Kinyarwanda at home Not on file 10/05/2023 Want [...] Description 10/16/2025 1:00 PM EST Office Visit [facility] Primary Care [address] [place] [address] Adamaris Glass, [address] [place] [address] 06/26/2026 2:45 PM EDT Appointment [facility] Breast [facility] [address] [facility] [address] [place] [address] Health Maintenance Due Date Last [...] the next mammogram. At our facility, a [place] marker is positioned over a visible skin [...] reviewed, interpreted, and dictated by MD Lila Cardeans 06/24/2025 7:08 PM EDT BILATERAL SCREENING DIGITAL [...] No suspicious change identified. Adamaris Glass DO [facility]AMMO[place]APHY ORDERABLES Fin al Result * (ABNORMAL) [...] - 12/24/2022 4:06 AM EDT Performed at: - [address] [id number] Digital Product Manager: Maik Davila PhD, Phone: [phone] us Adamaris Glass DO LAB BLOOD ORDERABLES [...] 12/29/2022 5:06 PM EDT Performed at: [facility] [address] [place] [id number] Digital Product Manager: Ana Alarcon MD, Phone: [phone] Specimen Comment: No. of containers..01 ThinPrep Vial Resulting Agency Comment [id number] us Adamaris Glass DO PATHOLOGY/CYTOLOGY ORDERABLES Final Result [facility] from Last 3 Months or Most Recently Relevant to Health Maintenance Insurance BLUE CROSS/BLUE SHIELD Care Teams Real Estate Intern Relationship Specialty Start Date End Date Adamaris Glass DO PCP - General Family Medicine 11/18/22
--- OUTSIDE RECORDS SUMMARY | 2025-08-01 08:57 | XMS_ITS | Encounter Summary ---
Author Organization [employer] ([place], [place], [place], [place], [place]) Address [address] [place] [address] Care Team Providers Care Electronic Equipment Repairmen Name Role Phone Adamaris Harmon DO Primary Care Provider [phone] Reason for Visit * Reason Onset Date Comments Appointment 07/18/2025 Encounter Details Date Type Department Care Team (Late st Contact Info) Description 07/18/2025 Telephone [facility] Primary Care [address] [place] [address] Adamaris Harmon DO [address] [place] [address] Appointment Social History Tobacco Use [...] Date Larry rded Speak language other than Nigerian at home Not on file 10/05/2023 Want [...] 10:22 AM EDT FROM: Corina Britt TO: [facility] [[id number]] SUBJECT: Appointment Request PROVIDER: ADAMARIS HARMON [[id number]] DEPARTMENT: [facility] [employer]int [employer] [facility] [[id number]] ENCOUNTER REASON FOR CALL: APPOINTMENT [[phone]] ENCOUNTER [...] RELATION TO PATIENT: Self [1] PREFERRED LANGUAGE: Nigerian BEST CALL BACK PHONE NUMBER: Home Phone: ([phone]) WHAT IS THE BEST WAY FOR THE [...] Description 10/16/2025 1:00 PM EST Office Visit [facility] Primary Care [address] [place] [address] Adamaris Harmon DO [address] [place] [address] 06/26/2026 2:45 PM EDT Appointment [facility] [address] [facility] [address] [place] [address] documented as of this encounter Visit Diagnoses Not on filedocumented in this encounter Care Teams Electronic Equipment Repairmen Relationship Specialty Start Date End Date Adamaris Harmon DO PCP - General Family Medicine 11/18/22 documented as of this encounter
--- OUTSIDE RECORDS SUMMARY | 2025-08-01 08:57 | XMS_ITS | Encounter Summary ---
Author Organization [employer] ([place], [place], [place], [place], [place]) Address [address] [place] [address] Care Team Providers Care Commercial Assistant Name Role Phone Adamaris Glass DO Primary Care Provider [phone] Reason for Visit * Reason Comments Medication Refill Encounter Details Date Type Department Care Team (Late st Contact Info) Description 07/16/2023 Refill [facility] Primary Care [address] [place] [address] Adamaris Glass DO [address] [place] [address] Social History Tobacco Use Types [...] System Primary Care [address] [place] [address] Adamaris Glass DO [address] [place] [address] 06/26/2026 2:45 PM EDT Appointment [address] [place] [address] documented as of this encounter Visit Diagnoses Not on filedocumented in this encounter Care Teams Commercial Assistant Relationship Specialty Start Date End Date Adamaris Glass DO PCP - General Family Medicine 11/18/22 documented as of this encounter
--- OUTSIDE RECORDS SUMMARY | 2025-08-01 08:57 | XMS_ITS | Encounter Summary ---
Author Organization [employer] ([place], [place], [place], [place], [place]) Address [address] [place] [address] Care Team Providers Care Crinkling Machine Operator Name Role Phone Adamaris Glass DO Primary Care Provider [phone] Reason for Visit * Reason Comments Medication Refill Encounter Details Date Type Department Care Team (Late st Contact Info) Description 01/17/2024 Refill [facility] Primary Care [address] [place] [address] Adamaris Glass DO [address] [facility] [address] [place] [address] Depressive disorder Social History Tobacco [...] Date Larry rded Speak language other than German at home Not on file 10/05/2023 Want [...] Description 10/16/2025 1:00 PM EST Office Visit [facility] Primary Care [address] [place] [address] Adamaris Glass DO [address] [place], [place] [id number] 06/26/2026 2:45 PM EDT Appointment [facility] [address] [facility] [address] [place] [address] documented as of this encounter Visit Diagnoses Diagnosis Depressive disorder Depressive disorder, not elsewhere classified documented in this encounter Care Teams Crinkling Machine Operator Relationship Specialty Start Date End Date Adamaris Glass DO PCP - General Family Medicine 11/18/22 documented as of this encounter
--- OUTSIDE RECORDS SUMMARY | 2025-08-01 08:57 | XMS_ITS | Encounter Summary ---
Author Organization [employer] ([place], [place], [place], [place], [place]) Address [address] [place] [address] Care Team Providers Care Data Processor Name Role Phone Nithya Glassjose Primary Care Provider [phone] Encounter Details Date Type Department Care Team [...] Larry rded Speak language other than [place] at home Not on file 10/05/2023 Want [...] Description 10/16/2025 1:00 PM EST Office Visit [facility] Primary Care [address] [place] [address] Adamaris Glass DO [address] [place] [address] 06/26/2026 2:45 PM EDT Appointment [facility] [address] [place] [address] documented as of this encounter Visit Diagnoses Not on filedocumented in this encounter Care Teams Data Processor Relationship Specialty Start Date End Date Adamaris Glass DO PCP - General Family Medicine 11/18/22 documented as of this encounter
[2025-08-01 09:44] LABS: Hematocrit 48.0 % (37.0-47.0); Hemoglobin 15.9 g/dL (12.2-16.2); Immature Granulocytes % 0.1 %; Mean Corpuscular HGB Conc 33.1 g/dL (31.8-35.4); Mean Corpuscular Hemoglobin 30.8 pg (27.0-31.2); Mean Corpuscular Volume 92.8 fl (81-99); Nucleated Red Blood Cells % 0 %; Platelet Count 314 K/mm3 (142-424); Red Blood Count 5.17 M/mm3 (4.20-5.40); Red Cell Distribution Width-SD 39.1 fL; White Blood Count 7.4 K/mm3 (4.8-10.8)
[2025-08-01 10:12] LABS: Chloride 105 mmol/L (98-107)
[2025-08-01 10:13] LABS: Albumin Level 4.5 g/dl (3.5-5.0); Potassium 5.0 mmoL/L (3.5-5.1); Sodium 138 mmol/L (136-145)
[2025-08-01 10:15] LABS: Blood Urea Nitrogen 10 mg/dl (7-17); Creatinine,Serum 0.80 mg/dl (0.52-1.04); Estimated Glomerular Filt Rate 75 ml/min (>60); GFR (African American) 91 ML/MIN (>60)
[2025-08-01 10:16] LABS: Alanine Aminotransferase 24 U/L (12-78); Albumin/Globulin Ratio 2.1 (1.1-1.8); Alkaline Phosphatase 60 U/L (38-126); Anion Gap 10.0 mEq/L (5-15); Aspartate Amino Transferase 27 U/L (14-36); Bilirubin,Total 0.6 mg/dl (0.2-1.3); Calcium 9.2 mg/dl (8.4-10.2); Carbon Dioxide 28 mmol/L (22.0-30.0); Globulin 2.1 g/dL (1.3-3.2); Glucose 96 mg/dl (74-100); Iron 101 ug/dL (37-170); Total Protein,Serum 6.6 g/dl (6.3-8.2)
[2025-08-01 10:33] LABS: Free T4 (Free Thyroxine) 1.05 ng/dl (0.78-2.19)
[2025-08-01 10:35] LABS: 25-OH Vitamin D, Total 109 ng/mL (30-100)
[2025-08-01 10:47] LABS: Thyroid Stimulating Hormone < 0.02 uIU/mL (0.465-4.68)
[2025-08-01 10:51] LABS: Ferritin 181 ng/ml (11.1-264)
[2025-08-01 12:07] LABS: Vitamin B12 981 pg/mL (239-931)
[2025-08-02 08:35] LABS: Triiodothyronine (T3) Free 14.7 pg/mL (2.0-4.4)
[2025-08-02 17:12] LABS: Antinuclear Antibodies, IFA Negative (.)
== END 2025-08-01 23:59 | disposition home or self-care (01) ==
LOC: LAB 08:48
PROVIDERS: PCP Family Medicine; Visit Provider Family Medicine
DX: E55.9 Vitamin D deficiency, unspecified (principal); M25.59 Pain in other specified joint; E53.8 Deficiency of other specified B group vitamins; R79.89 Other specified abnormal findings of blood chemistry; E03.9 Hypothyroidism, unspecified; Z91.89 Other specified personal risk factors, not elsewhere classified; Z20.9 Contact with and (suspected) exposure to unspecified communicable disease; Z13.6 Encounter for screening for cardiovascular disorders; W57.XXXA Bitten or stung by nonvenomous insect and other nonvenomous arthropods, initial encounter
CPT/HCPCS: 36415; 80053; 82306; 82607; 82728; 83540; 84439; 84443; 84481; 85025; 86038; 86617